=== PATIENT | male | born 1995 | race Caucasian/White ===

== ENCOUNTER 2018-09-16 11:55 | Emergency (ER) | payer OTHER ==
[2018-09-16 12:08] VITALS: BP 133/75; PULSE 84; TEMP 98.6; BMI 28.0
--- NOTE | 2018-09-16 13:11 | PDOC ---
History of Present Illness - General Chief Complaint: Injury Stated Complaint: INJURY Time Seen by Provider: 09/16/18 12:44 - History of Present Illness Initial Comments: 09/16/18 13:07 23-year-old male without comorbidities presents for evaluation of right wrist pain. He states about 2 weeks ago he hit his wrist on a piece of concrete he points to the radial volar aspect of the right wrist as the area of his discomfort. Past History - Past Medical History Allergies/Adverse Reactions: Allergies Allergy/AdvReac Type Severity Reaction Status Date / Time No Known Allergies Allergy Verified 09/16/18 12:06 - Suicide/Smoking/Psychosocial Hx Smoking History: Current every day smoker Information on smoking cessation initiated: No Hx Alcohol Use: No Drug/Substance Use Hx: No Review of Systems - Review of Systems Musculoskeletal: Yes: Joint Pain *Physical Exam - Vital Signs Last Vital Signs Temp Pulse Resp BP Pulse Ox 98.6 F 84 17 133/75 96 09/16/18 12:07 09/16/18 12:07 09/16/18 12:07 09/16/18 12:07 09/16/18 12:07 - Physical Exam Comments: 09/16/18 13:08 Right wrist skin color and temperature are normal range of motion is full and nonpainful. No areas of tenderness other than the area of the triquetrum. DRUJ scaphoid distal radius and ulna are nontender. Sensory motor deficits neurovascular intact. ED Treatment Course - RADIOLOGY Radiology Studies Ordered: Category Date Time Status WRIST- RIGHT [RAD] Stat Radiology 09/16/18 12:47 Taken Medical Decision Making - Medical Decision Making 09/16/18 13:09 Right wrist contusion, volar wrist splint follow-up with orthopedics *DC/Admit/Observation/Transfer Diagnosis at time of Disposition: Contusion of wrist, right - Discharge Dispostion Disposition: HOME Decision to Admit order: No - Referrals Referrals: Maxim Marcos DO [Staff Physician] - - Patient Instructions Additional Instructions: I do not appreciate an acute fracture on x-ray today. Please follow-up with orthopedic surgery in one to 2 days for further evaluation and treatment options. Tylenol and Motrin as directed for pain. Please wear the wrist splint for comfort you may remove it for hygiene and sleep. Return to the emergency room for worsening symptoms - Post Discharge Activity
== END 2018-09-16 13:19 | disposition home or self-care (01) ==
LOC: JERFT 11:55
PROC: 2W3CX1Z Immobilization of Right Lower Arm using Splint (ICD-10-PCS; principal; 2018-09-16)
DX: S60.211A Contusion of right wrist, initial encounter (principal); W22.8XXA Striking against or struck by other objects, initial encounter; Y93.89 Activity, other specified; Y92.89 Other specified places as the place of occurrence of the external cause; Y99.8 Other external cause status
CPT/HCPCS: 29125; 73110-TC-RT-FY; 99281-25

== ENCOUNTER 2018-10-11 19:17 | Emergency (ER) | payer OTHER ==
[2018-10-11 19:29] VITALS: BP 116/62; PULSE 87; TEMP 98.1; BMI 61.8
[2018-10-11] MEDS ORDERED: DIPHTH,PERTUSS(ACELL),TET 0.5 ML DISP.SYRIN IM ONE ×2 (19:58→20:01)
--- NOTE | 2018-10-11 20:00 | PDOC ---
History of Present Illness - General Chief Complaint: Puncture Wound Stated Complaint: HEAD PAIN Time Seen by Provider: 10/11/18 19:39 History Source: Patient Exam Limitations: No Limitations Past History - Travel Traveled outside of the country in the last 30 days: No Close contact w/someone who was outside of country & ill: No - Past Medical History Allergies/Adverse Reactions: Allergies Allergy/AdvReac Type Severity Reaction Status Date / Time No Known Allergies Allergy Verified 09/16/18 13:18 Home Medications: Ambulatory Orders NK [No Known Home Medication] 09/16/18 COPD: No - Suicide/Smoking/Psychosocial Hx Smoking History: Never smoked Hx Alcohol Use: No Drug/Substance Use Hx: No Review of Systems - Review of Systems Able to Perform ROS?: Yes Comments:: 10/11/18 20:02 CONSTITUTIONAL: Absent: fever, chills, diaphoresis, generalized weakness, malaise, loss of appetite HEENT: Absent: rhinorrhea, nasal congestion, throat pain, throat swelling, difficulty swallowing, mouth swelling, ear pain, eye pain, visual Changes MUSCULOSKELETAL: Absent: myalgia, arthralgia, joint swelling SKIN: Present: puncture wound to head Absent: rash, itching, pallor NEUROLOGIC: Absent: headache, focal weakness or paresthesias, dizziness, unsteady gait, seizure, mental status changes, bladder or bowel incontinence PSYCHIATRIC: Absent: anxiety, depression, suicidal or homicidal ideation, hallucinations. Is the patient limited Setswana proficient: No *Physical Exam - Vital Signs Last Vital Signs Temp Pulse Resp BP Pulse Ox 98.1 F 87 20 116/62 97 10/11/18 19:26 10/11/18 19:26 10/11/18 19:26 10/11/18 19:26 10/11/18 19:26 - Physical Exam Comments: 10/11/18 20:02 GENERAL: The patient is awake, alert, and fully oriented, in no acute distress. HEAD: Normal with no signs of trauma. EYES: Pupils equal, round and reactive to light, extraocular movements intact, sclera anicteric, conjunctiva clear. EXTREMITIES: Normal range of motion, no edema. NEUROLOGICAL: Normal speech, normal gait. PSYCH: Normal mood, normal affect. SKIN: Abrasion/possible pucture wound to the L occipital region. No bleeding and wound is approximated at this time. Warm, Dry, normal turgor, no rashes or lesions noted. Medical Decision Making - Medical Decision Making 10/11/18 20:09 The patient is a 23-year-old female with no past medical history who presents to the ER for a puncture wound to the back of his head. 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 He states that he is able stop bleeding on his own and now he has a bruise to the area. He is unsure of his last tetanus shot. Denies loss of consciousness, dizziness and lightheadedness A/P: Puncture wound On exam small subcentimeter scab present to the left occipital region. Well approximated, does not need donell at this time. Tetanus updated We will discharge home I discussed the physical exam findings, ancillary test results and final diagnoses with the patient. I answered all of the patient's questions. The patient was satisfied with the care received and felt comfortable with the discharge plan and treatment plan. The Patient agrees to follow up with the primary care physician/specialist within 24-72 hours. Return precautions were given. *DC/Admit/Observation/Transfer Diagnosis at time of Disposition: Puncture wound - Discharge Dispostion Disposition: HOME Condition at time of disposition: Stable Decision to Admit order: No - Referrals Referrals: He Ortiz MD [Staff Physician] - - Patient Instructions Printed Discharge Instructions: DI for Puncture Wound Additional Instructions: you were evaluated for your puncture wound today. It close on its own and is not bleeding. It did not need donell. Your tetanus shot was updated today. You may apply an ice pack to the area to help reduce the swelling of the bruise underneath. Follow up with your primary care doctor this week. If you do not have one, one has been provided to you. Return to the ER for fever, worsening pain or if you have any changes in your symptoms. - Post Discharge Activity Forms/Work/School Notes: Back to Work
== END 2018-10-11 20:26 | disposition home or self-care (01) ==
LOC: JERFT 19:17
PROC: 3E0234Z Introduction of Serum, Toxoid and Vaccine into Muscle, Percutaneous Approach (ICD-10-PCS; principal; 2018-10-11)
DX: S01.03XA Puncture wound without foreign body of scalp, initial encounter (principal); W45.0XXA Nail entering through skin, initial encounter; Y93.H3 Activity, building and construction; Y92.69 Other specified industrial and construction area as the place of occurrence of the external cause; Y99.0 Civilian activity done for income or pay
CPT/HCPCS: 90471; 90715; 99281-25

== ENCOUNTER 2018-10-30 19:26 | Emergency (ER) | payer OTHER ==
[2018-10-30 19:39] VITALS: BP 153/88; PULSE 70; TEMP 98.4; BMI 28.0
--- NOTE | 2018-10-30 19:40 | PDOC ---
Rapid Medical Evaluation Time Seen by Provider: 10/30/18 19:34 Medical Evaluation: Allergies Allergy/AdvReac Type Severity Reaction Status Date / Time No Known Allergies Allergy Verified 09/16/18 13:18 10/30/18 19:35 I have performed a brief in-person evaluation of this patient. The patient presents with a chief complaint of: Rash to the genitals for 3 weeks , has been applying ketoconazole for 6 days without relief, feels like rash is spreading. (+)h/o jock itch as a teenager. No h/o DM, was on abx 2 weeks ago but had rash before. The patient will proceed to the ED for further evaluation. Discharge Disposition - Diagnosis Rash of genital area - Referrals - Patient Instructions - Post Discharge Activity
--- NOTE | 2018-10-30 20:14 | PDOC ---
History of Present Illness - General Chief Complaint: Rash Stated Complaint: RASH Time Seen by Provider: 10/30/18 19:34 History Source: Patient - History of Present Illness Initial Comments: 10/30/18 20:54 23-year-old male complaining of irritation to the scrotum and penis for the last 2 weeks. Patient was prescribed ketoconazole with no improvement in symptoms. Patient reports that he has been wearing tighter fitting boxers due to an epididymal cyst. Patient reports that he is in a monogamous relationship with . Patient is requesting STD testing. patient reports urinary symptoms today Denies MSM, high risk sexual behaviors. 10/30/18 20:57 Past History - Past Medical History Allergies/Adverse Reactions: Allergies Allergy/AdvReac Type Severity Reaction Status Date / Time No Known Allergies Allergy Verified 10/30/18 19:39 Home Medications: Ambulatory Orders NK [No Known Home Medication] 09/16/18 COPD: No - Suicide/Smoking/Psychosocial Hx Smoking History: Current some day smoker Number of Cigarettes Smoked Daily: 1 Information on smoking cessation initiated: No Hx Alcohol Use: No Drug/Substance Use Hx: No Review of Systems - Review of Systems Able to Perform ROS?: Yes Is the patient limited Hungarian proficient: No Constitutional: No: Symptoms Reported, See HPI, Chills, Diaphoresis, Fever, Loss of Appetite, Malaise, Night Sweats, Weakness, Weight Stable, Unintentional Wgt. Loss, Unexplained wgt Loss, Other Respiratory: No: Symptoms reported, See HPI, Cough, Orthopnea, Shortness of Breath, SOB with Exertion, SOB at Rest, Stridor, Wheezing, Productive cough, Hemoptysis, Other Integumentary: Yes: Other (flat patches to scrotum with hypopigmentation. no ulcers noted, no penile discharge) *Physical Exam - Vital Signs Last Vital Signs Temp Pulse Resp BP Pulse Ox 98.4 F 70 18 153/88 99 10/30/18 19:35 10/30/18 19:35 10/30/18 19:35 10/30/18 19:35 10/30/18 19:35 - Physical Exam General Appearance: Yes: Appropriately Dressed Integumentary: positive: Normal Color, Dry, Warm, Other (falt patches to scrotum b/l no penile discharge) Neurologic: positive: Fully Oriented, Alert Progress Note - Progress Note Progress Note: A: STI testing; rash P: rpr GC/ chlamydia HIV *DC/Admit/Observation/Transfer Diagnosis at time of Disposition: Rash of genital area, Sexually transmitted disease counseling - Referrals Referrals: Benjie Jones MD [Primary Care Provider] - Park Fall MD [Staff Physician] - Call tomorrow - Patient Instructions Additional Instructions: continue ketoconazole follow up with a chief ultrasound technologist as soon as possible return to the ER for any worsening symptoms - Post Discharge Activity
[2018-10-30 21:00] LABS: PH,URINE 5.5 (5.0-8.0); URINE APPEARANCE CLEAR; URINE BILIRUBIN NEGATIVE (NEGATIVE); URINE COLOR YELLOW; URINE GLUCOSE (UA) NEGATIVE (NEGATIVE); URINE KETONE NEGATIVE (NEGATIVE); URINE LEUK ESTERASE NEGATIVE (NEGATIVE); URINE NITRITE NEGATIVE (NEGATIVE); URINE PROTEIN NEGATIVE (NEGATIVE); URINE UROBILINOGEN 0.2 mg/dL (0.2-1.0)
== END 2018-10-30 22:09 | disposition home or self-care (01) ==
LOC: JERFT 19:26
DX: R21 Rash and other nonspecific skin eruption (principal); Z70.8 Other sex counseling
CPT/HCPCS: 36415; 81003; 86593; 87086; 87389; 87491; 87591; 99282-25